=== PATIENT | male | born 1950 | race Caucasian/White ===

== ENCOUNTER 2024-01-28 13:26 | Emergency (ER) | payer OTHER, SELFPAY ==
[2024-01-28 13:38] VITALS: BP 122/85
--- NOTE | 2024-01-28 14:58 | ED.GENMED ---
History of Present Illness
General
Chief Complaint: Musculo-Skeletal Complaint
Source: patient
Time Seen by Provider: 01/28/24 14:35
Travel History
Have you had any contact with someone who has COVID-19?: No
Do you have any symptoms of coronavirus? Fever > 100 degrees, chills, cough, shortness of breath, sore throat, loss of taste or smell, muscle aches, or headache?: No
History of Present Illness
History of Present Illness:
73-year-old male with past medical history of hypertension hyperlipidemia, pulmonary embolism presenting to the emergency department for evaluation of right shoulder pain that started few days ago, gradually worse throughout the weekend prompting
him to come to the ER today. Patient denies any injury to the affected area or previous history of injury. Has not taken anything for pain. Has seen Domenic for previous orthopedic complicate
Past History
Past History
ED Past Medical History: HTN, Hypercholesterolemia, Hypothyroidism, Psychiatric and Other (Pulmonary embolus)
ED Past Surgical History: Other (Hernia repair)
Social History
Tobacco: Non-smoker
Alcohol: Occasional
Drug: None
Personal:
Living: with family
Review of Systems
Review of Systems
All Other Systems: ROS reviewed and negative except as documented in HPI and ROS
Phy Exam
Physical Exam
Physical Exam:
GENERAL: Alert , in no apparent distress
EYE: conjunctiva clear
Head: Normocephalic atraumatic
NECK: Supple,
ENT: mmm.
LUNGS: no acute respiratory distress
NEUROLOGICAL: Alert and oriented
SKIN: Warm and dry, skin intact.
MUSCULOSKELETAL: Right upper extremity: No obvious deformity, erythema, edema, ecchymosis, abrasions or lacerations. Range of motion is very limited secondary to pain in all planes. Patient does allow for range of motion of the elbow and wrist
without any difficulty. Easily palpable radial pulse. Cap refill less than 2 seconds. Sensation grossly intact to light touch.
PSYCH: Normal and appropriate interaction.
Scores
Heart Failure Risk
Heart Failure Risk Score: Not Applicable
Heart Score for Chest Pain Patients
STEMI patient?: Not applicable
Withdrawal Assessment of Alcohol
Withdrawal Assessment Completed?: Not applicable
Course
Orders/Labs/Results
Orders:
Orders
01/28/24 13:40
Shoulder, Right 2 Views [CR Shoulder - Right Min 2 View] Urgent
Comment:
Reason For Exam: pain
Vital Signs
Initial and Last Documented VS:
Initial Vital Signs
Temp Pulse Resp BP Pulse Ox
98.1 F 107 18 122/85 97
01/28/24 13:38 01/28/24 13:38 01/28/24 13:38 01/28/24 13:38 01/28/24 13:38
Last Documented Vital Signs
Temp Pulse Resp BP Pulse Ox
98.1 F 107 18 122/85 97
01/28/24 13:38 01/28/24 13:38 01/28/24 13:38 01/28/24 13:38 01/28/24 13:38
MDM/Problems Addressed
Differential Diagnosis Includes:
Arthritic changes, rotator cuff injury, bursitis, minimal concern for fracture or dislocation given no mechanism for this
MDM/Problems Addressed:
73-year-old male present emergency department for evaluation of right shoulder pain. Range of motion very limited secondary to the pain. X-ray was ordered from triage and ultimately shows degenerative changes without any evidence for fracture or
dislocation. I do suspect rotator cuff versus bursitis to be most likely complication. Patient unable to take NSAIDs due to being anticoagulated on Eliquis. Does not wish to have any further prescriptive medications will take Tylenol. Declines
sling. He will follow-up with them for an appointment.
*Radiology
Radiology exam reviewed: preliminary read by ED provider (no fx, degenerative changes)
*Pulse Oximetry
Patient hypoxic: no
*Critical Care Note
Total Time (30-74mins, 75-104mins- exclusive of procedures): Not Applicable
ED Attending Note
-
Portions of this chart may have been created with voice recognition software.� Occasional wrong word or��sound alike� substitutions may have occurred due to the inherent limitations of voice recognition software.
Discharge Plan
Departure
Patient Disposition: Home (Routine Discharge)
Date of Disposition: 01/28/24
Time of Disposition: 14:58
Patient with high blood pressure during this ER visit?: No
Discharge Problem:
Pain in right shoulder
Instructions: Shoulder Pain (DC)
Prescriptions:
No Action
meclizine [Antivert] 25 mg tablet,chewable
25 mg PO Q8HPRN PRN (Reason: nausea or vertigo) Qty: 10 0RF
Eliquis DVT-PE Treat 30D Start 5 mg (74 tabs) tablets,dose pack
See Rx Instructions .ROUTE .COMPLEX Qty: 74 0RF
Rx Instructions:
orally per package directions
Referrals:
Grzegorz Cazares MD [Active] -
Interventions
Interventions:
*Risk Screen - Suicide Last Done: 01/28/24 13:38
*General Assessment Last Done: 01/28/24 13:38
*Neglect/Abuse Screening Last Done: 01/28/24 13:38
*ED COVID-19 Vaccine History Last Done: 01/28/24 13:38
== END 2024-01-28 15:14 | disposition home or self-care (01) ==
LOC: EMR 13:26
PROVIDERS: EMERGENCY PHYSICIAN Emergency Medicine; FAMILY PHYSICIAN Family Medicine
DX: M25.511 Pain in right shoulder (principal); I10 Essential (primary) hypertension; E78.00 Pure hypercholesterolemia, unspecified; E03.9 Hypothyroidism, unspecified; Z86.711 Personal history of pulmonary embolism; Z79.01 Long term (current) use of anticoagulants; Z88.8 Allergy status to other drugs, medicaments and biological substances
CPT/HCPCS: 99283; 73030

== ENCOUNTER → 2024-06-06 14:31 | Outpatient (REF) | payer OTHER, SELFPAY | LOC: HWRCS 14:31 | PROVIDERS: ATTENDING PHYSICIAN Internal Medicine; FAMILY PHYSICIAN Family Medicine | DX: I48.91 Unspecified atrial fibrillation (principal) | CPT/HCPCS: 93306 ==

== ENCOUNTER → 2024-06-17 07:54 | Outpatient (REF) | payer OTHER, SELFPAY | LOC: DHCBC/DCA 07:54 | PROVIDERS: ATTENDING PHYSICIAN Internal Medicine; FAMILY PHYSICIAN Family Medicine | DX: I48.91 Unspecified atrial fibrillation (principal) | CPT/HCPCS: 78452; 93017; A9500; J2785 ==

== ENCOUNTER 2024-06-25 06:40 | Day surgery (SDC) | payer OTHER, SELFPAY ==
[2024-06-25] VITALS (10 sets, daily range): BP systolic 121–157; BP diastolic 82–119; BMI 36.3
[2024-06-25] MEDS: TYLENOL 1000 MG PO (11:50)
[2024-06-25 12:21] LABS: Hematocrit 43.4 % (39.0-52.0); Hemoglobin 15.4 g/dL (13.0-18.0); Mean Corp Hgb Conc. 35.5 g/dL (33.0-37.0); Mean Corpuscular Hgb 32.9 pg (27.0-31.0); Mean Corpuscular Volume 92.7 fL (80.0-94.0); Mean Platelet Volume 10.5 fL (7.4-10.4); Platelet Count 242 10^3/uL (130-400); Red Blood Cell Count 4.68 10^6/uL (4.70-6.10); Red Cell Dist. Width 14.3 % (11.5-14.5); White Blood Cell Count 6.1 10^3/uL (4.8-10.8)
[2024-06-25] MEDS: NORMOSOL-R 1000 IV (12:32)
--- NOTE | 2024-06-25 14:15 | W.SUR.PREOP ---
Pre-Operative Surgical Note
-
I have examined this patient prior to the performance of the scheduled procedure.
The patient's condition is unchanged from the time of the current History and
Physical and the patient is able to undergo the scheduled procedure.
--- NOTE | 2024-06-25 18:37 | W.IMMPOSTOP ---
Surgical Immed Post Op Note
-
Primary Surgeon: GRACIELA England MD
Assisting Surgeon:
Pre-op Diagnosis: Mohs defect of nose, SCC
Post-op Diagnosis: Same
Procedure Performed: Reconstruction of nasal defect, repair of cartilage and septum, application of dermal substitute
Anesthesia Type: GA
Specimen / Cultures: None
Estimated Blood Loss: 1cc
Complications: None
Operative Findings: As expected
--- NOTE | 2024-06-25 18:48 | OR.RPT ---
Operative Report
Operative Report
Date of surgery: 06/25/2024
Surgeon: GRACIELA England MD
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
Postoperative diagnosis: Same
Procedure:
1. Reconstruction of the nasal cartilages
2. Wound bed prep nasal dorsum 4 x 3 cm
3. Application of dermal substitute 4 x 3 cm, nasal dorsum
Anesthesia: General
EBL: 1 cc
Complications: None
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 He undergone a previous nasal flap for nasal tip defect. He recently underwent a Mohs procedure for squamous cell
carcinoma of the nasal dorsum. He presented following clear margins with referral from Dr. Flynn. Upon evaluation in the office, he was left with a large defect down to cartilage. We discussed forehead flap reconstruction in order to achieve the
best cosmesis and soft tissue stability. He was not interested in that at this time. Instead, he elected to proceed with staged dermal substitute application and potential full-thickness skin grafting. He understands this will result in a patchy
appearance. Risk include graft failure, infection, asymmetry, scar contracture, need for repeat procedure. He understood these to be his desire to proceed. He preferred to allow the wound to granulate for 2 weeks prior to surgery as he had an
upcoming stress test and work-related issues. As such he underwent wound care in the interim.
Procedure in detail:
Patient was identified in the preoperative area and the surgical site was confirmed to be the left nasal dorsum. All questions were answered and consents were confirmed. Patient was then taken back to the operating room placed supine on the table.
Anesthesia was induced and the patient was prepped and draped in usual sterile fashion using Betadine solution. Timeout for patient safety was performed was confirmed the preoperative antibiotics administered bilateral SCDs were in place.
Procedure began first with the wound bed preparation after the injection 1% lidocaine with epinephrine 9 cc in a local and regional block technique. The wound bed prep that was performed with sharp excision of the granulation bed with a 15 blade
tangentially. The exposed septum and upper lateral cartilages bilaterally were then identified. Upon evaluation under anesthesia of the wound bed, it was determined that the Mohs excision created an open roof deformity in which the nasal cavity
was incontinuity with the nasal dorsum. This was more prominent on the left as the upper lateral cartilages had been removed in the [place] area and inferiorly. Probing with a [place] confirmed that this space was continuous. As such the decision
was made to proceed with the reconstruction of the upper lateral cartilages affixing them to the septum with a series of 4-0 Monocryl sutures. This was done in a horizontal mattress fashion as well as an oversewed running continuous suture. The
remainder of the wound bed prep was then performed and then a dermal substitute of amnio Whitman was placed over the wound bed and an area of 4 x 3 cm. A bolster dressing consisting of Xeroform and dry gauze was then sutured in place with 3-0 silks.
Patient tolerated the procedure well is performed out complication, all counts are correct at the end the case. Exacerbating the PACU further care
== END 2024-06-25 17:27 | disposition home or self-care (01) ==
LOC: SDS 06:40
PROVIDERS: ATTENDING PHYSICIAN Surgery Plastic and Reconstructive Surgery
DX: C44.321 Squamous cell carcinoma of skin of nose (principal); M95.0 Acquired deformity of nose
CPT/HCPCS: 15275; 15004; 85027